=== PATIENT | female | born 1945 | race Caucasian/White ===

== ENCOUNTER → 2016-10-29 | Day surgery (SDC) | payer MEDICARE, BC ==
[2016-10-29 13:10] VITALS: BMI 27.5
[2016-10-29 14:38] VITALS: BP 125/76; PULSE 73; RESP 12; TEMP 97.9
--- NOTE | 2016-10-29 14:58 | USB ---
EXAMINATION TYPE: US discontinued breast bx RT DATE OF EXAM: 10/29/2016 CLINICAL HISTORY: R92.8 ABN Mammogram. TECHNIQUE: Scheduled Ultrasound guided core biopsy of right breast. Real-time linear array sonograph y is performed. COMPARISON: Ultrasound 09/29/2016. FINDINGS: Imaging was performed. The area in question of the right upper outer quadrant could not be reproduced at this time. Real-time observation, and real-time scanning was performed by [facility]. IMPRESSION: 1. Probably benign findings, ultrasound. Recommendations: 1. Follow-up right breast mammogram 6 months. This patient may benefit from tomography. 2. Follow-up right breast ultrasound 6 months. 3. Patient should continue monthly self breast exam. 4. Negative ultrasound should not preclude biopsy of suspicious palpable areas.
--- NOTE | 2016-10-30 07:50 | USB ---
US Discontinued Breast Bx RT EXAMINATION TYPE: US discontinued breast bx RT DATE OF EXAM: 10/29/2016 CLINICAL HISTORY: R92.8 ABN Mammogram. TECHNIQUE: Scheduled Ultrasound guided core biopsy of right breast. Real-time linear array sonography is performed. COMPARISON: Ultrasound 09/29/2016. FINDINGS: Imaging was performed. The area in question of the right upper outer quadrant could not be reproduced at this time. Real-time observation, and real-time scanning was performed by the radiologist. IMPRESSION: 1. Probably benign findings, ultrasound. Recommendations: 1. Follow-up right breast mammogram 6 months. This patient may benefit from tomography. 2. Follow-up right breast ultrasound 6 months. 3. Patient should continue monthly self breast exam. 4. Negative ultrasound should not preclude biopsy of suspicious palpable areas. RECOMMENDATION: Follow-up diagnostic mammogram and ultrasound of the right breast in 6 months.
== END ==
LOC: RADUSWWP 12:09
PROVIDERS: ATTEND Surgery
DX: R92.8 Other abnormal and inconclusive findings on diagnostic imaging of breast (principal); Z53.8 Procedure and treatment not carried out for other reasons

== ENCOUNTER → 2017-06-03 | Outpatient (CLI) | payer MEDICARE, BC ==
--- NOTE | 2017-06-04 07:27 | MM ---
Reason for exam: follow-up at short interval from prior study. Last mammogram was performed 8 months ago. History: Patient is postmenopausal. Family history of breast cancer in sister at age 50. US discontinued breast bx RT of the right breast, October 29, 2016. Excisional biopsy of the left breast, 1964. Physical Findings: Nurse did not find any significant physical abnormalities on exam. MG 3D Diag Mammo W/Cad RT CC and MLO view(s) were taken of the right breast. Prior study comparison: September 29, 2016, mammogram. September 09, 2016, mammogram. The breast tissue is extremely dense which could obscure a lesion on mammography. No significant new findings when compared with previous films. These results were verbally communicated with the patient and result sheet given to the patient on 06/03/17. ASSESSMENT: Benign, BI-RAD 2 RECOMMENDATION: Follow-up diagnostic mammogram of both breasts in 6 months.
--- NOTE | 2017-06-04 07:29 | USB ---
Reason for exam: follow-up at short interval from prior study. History: Patient is postmenopausal. Family history of breast cancer in sister at age 50. US discontinued breast bx RT of the right breast, October 29, 2016. Excisional biopsy of the left breast, 1964. US Breast RT Right breast ultrasound includes all four quadrants, the retroareolar region and axilla. Finding demonstrates a 1.8 x 1.1 x 0.8cm solid lesion at the axilla tail with compression lobe, no shadowing, real time observation performed. These results were verbally communicated with the patient and result sheet given to the patient on 06/03/17. ASSESSMENT: Probably benign, BI-RAD 3 RECOMMENDATION: Ultrasound of the right breast in 6 months.
== END | disposition home or self-care (01) ==
LOC: RADMAMWWP 13:58
PROVIDERS: ATTEND Emergency Medicine Emergency Medical Services
DX: N63.10 Unspecified lump in the right breast, unspecified quadrant (principal); R92.8 Other abnormal and inconclusive findings on diagnostic imaging of breast
CPT/HCPCS: 77065; 76641; G0279; 70553; 82565; 84520

== ENCOUNTER → 2017-06-03 | Outpatient (CLI) | payer MEDICARE, BC ==
[2017-06-03 12:55] LABS: Blood Urea Nitrogen 18 mg/dL (7-17)
--- NOTE | 2017-06-08 12:31 | MR ---
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 Surgical resection performed in March 2017. TECHNIQUE: Multiplanar, multisequence images of the brain and brainstem is performed without and with IV contras t, utilizing 6.5 mL intravenous Gadavist . 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 Scant postoperative fluid is seen along the left petrous portion of the temporal bone an d mastoid air cells inferiorly. There is extensive postsurgical change of the mastoid air cells on th e left with surgical packing. There is diffuse linear enhancement along the left 7th and 8th cranial nerves beginning at the left cerebellopontine angle and extending into the porus acoustic is. No nodu lar enhancement is seen. No abnormal intracranial enhancement and the visualized portions of the brai n. Diffusion weighted images demonstrate no evidence of a recent infarct or other diffusion abnormality. There is no extra-axial fluid collection. Scattered areas of T2/FLAIR hyperintensity are seen withi n the subcortical and periventricular white matter most confluent within the right parietal lobe. The se are moderate burden most commonly related to sequela of microangiopathy. The ventricular system an d cisternal spaces are normal in size and appearance. The brain volume is age appropriate. 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 Midline structures demonstrate normal morphology. The craniocervical junction appears within normal limits. Scant mucosal thickening is seen within the ethmoid sinuses. The remaining visualized sinuse s are clear and the globes are intact. 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 Linear enhancement is seen along the course of the 7th and 8th cranial nerves extending from the cerebellar pontine angle through the porus acusticus. Given the re cent surgery enhancement may be related to granulation tissue and or scar tissue. No focal mass or no dular enhancement is seen. Short-term surveillance MR is recommended in 3 months.
== END | disposition home or self-care (01) ==
LOC: RADMRIMAIN 12:22
PROVIDERS: ATTEND Otolaryngology
DX: Z48.3 Aftercare following surgery for neoplasm (principal); D33.3 Benign neoplasm of cranial nerves
CPT/HCPCS: 82565; 84520; 70553; A9581

== ENCOUNTER → 2018-01-20 | Outpatient (CLI) | payer MEDICARE, BC ==
--- NOTE | 2018-01-20 12:48 | MM ---
Reason for exam: additional evaluation requested from prior study. Last mammogram was performed 8 months ago. History: Patient is postmenopausal. Family history of breast cancer in sister at age 50. US discontinued breast bx RT of the right breast, October 29, 2016. Excisional biopsy of the left breast, 1964. Physical Findings: Nurse did not find any significant physical abnormalities on exam. MG 3D Diag Mammo W/Cad SILVIA Bilateral CC and MLO view(s) were taken. Prior study comparison: June 03, 2017, right breast MG 3d diag mammo w/cad RT. September 29, 2016, mammogram. The breast tissue is extremely dense which could obscure a lesion on mammography. No significant new findings when compared with previous films. These results were verbally communicated with the patient and result sheet given to the patient on 01/20/18. ASSESSMENT: Incomplete: need additional imaging evaluation, BI-RAD 0 RECOMMENDATION: Ultrasound of the right breast. (follow up from prior)
--- NOTE | 2018-01-20 12:53 | USB ---
Reason for exam: additional evaluation requested from abnormal screening. History: Patient is postmenopausal. Family history of breast cancer in sister at age 50. US discontinued breast bx RT of the right breast, October 29, 2016. Excisional biopsy of the left breast, 1964. US Breast RT Right complete breast ultrasound includes all four quadrants, the retroareolar region and axilla. Finding demonstrates a 2.7 x 2.0 x 2.3mm lesion too small to characterize at 9 o'clock, likely cystic. The previously questioned area in the axilla questioned mass versus dense island of tissue is not redemonstrated. These results were verbally communicated with the patient and result sheet given to the patient on 01/20/18. ASSESSMENT: Benign, BI-RAD 2 RECOMMENDATION: Routine screening mammogram of both breasts in 1 year. [facility]
== END | disposition home or self-care (01) ==
LOC: RADMAMWWP 09:22
PROVIDERS: ATTEND Emergency Medicine Emergency Medical Services
DX: R92.8 Other abnormal and inconclusive findings on diagnostic imaging of breast (principal)
CPT/HCPCS: 77066; 76641; G0279; 77062